=== PATIENT | male | born 1970 | race Caucasian/White ===

== ENCOUNTER 2022-10-24 23:11 | Emergency (ER) | payer OTHER ==
[2022-10-24 23:28] VITALS: BP 152/90; PULSE 91; RESP 18; TEMP 97; BMI 23.3
[2022-10-24] MEDS ORDERED: SODIUM CHLORIDE 0.9% 500 ML INFUS.BAG IV ONE (23:54)
[2022-10-25] MEDS ORDERED: MECLIZINE HCL 25 MG TABLET (FP) PO ONE (00:17)
[2022-10-25 00:46] LABS: BASO % 1.1 % (0-2.0); EOS % 0.3 % (0-4.5); HEMATOCRIT 38.2 % (35.4-49); HEMOGLOBIN 13.6 GM/dL (11.7-16.9); LYMPH % 6.5 % (8-40); MCH 34.4 pg (25.7-33.7); MCHC 35.7 g/dl (32.0-35.9); MEAN CELL VOLUME 96.1 fl (80-96); MEAN PLT VOLUME 9.9 fl (7.5-11.1); MONO % 8.1 % (3.8-10.2); PLATELET COUNT 206 10^3/uL (134-434); RBC 3.97 M/mm3 (4.00-5.60); RDW 12.8 % (11.9-15.9); WHITE BLOOD COUNT 7.9 K/mm3 (4.0-10.0)
[2022-10-25 01:07] LABS: CHLORIDE 101 mmol/L (98-107); SODIUM 132 mmol/L (136-145)
[2022-10-25 01:09] LABS: ALBUMIN 3.9 g/dl (3.4-5.0); BLOOD UREA NITROGEN 13.2 mg/dL (7-18); CALCIUM 9.2 mg/dL (8.5-10.1); CO2 28 mmol/L (21-32); GLUCOSE,RANDOM 144 mg/dL (74-106)
[2022-10-25 01:12] LABS: CREATININE 0.8 mg/dL (0.55-1.3); SGOT/AST 104 U/L (15-37)
[2022-10-25 01:14] LABS: BILIRUBIN,TOTAL 0.3 mg/dL (0.2-1)
[2022-10-25 01:15] LABS: ALK PHOS 59 U/L (45-117)
[2022-10-25 01:16] LABS: TOT PROT 7.6 g/dl (6.4-8.2)
[2022-10-25 01:40] LABS: ANION GAP 3 MMOL/L (8-16); POTASSIUM 6.5 mmol/L (3.5-5.1); SGPT/ALT 43 U/L (13-61)
[2022-10-25 02:40] LABS: POTASSIUM 3.7 mmol/L (3.5-5.1)
[2022-10-25 02:41] LABS: CALCIUM 8.5 mg/dL (8.5-10.1)
[2022-10-25 02:42] LABS: BLOOD UREA NITROGEN 11.4 mg/dL (7-18)
[2022-10-25 02:45] LABS: CREATININE 0.6 mg/dL (0.55-1.3)
== END 2022-10-25 02:59 | disposition home or self-care (01) ==
LOC: JER 23:11
DX: F12.920 Cannabis use, unspecified with intoxication, uncomplicated (principal); R42 Dizziness and giddiness
CPT/HCPCS: 36415; 80048; 80053; 84484; 85025; 93005; 93010; 99284-25